=== PATIENT | male | born 1950 | race Caucasian/White ===

== ENCOUNTER 2021-12-11 11:20 | Inpatient (IN) | payer MEDICARE, MEDICAID ==
[~2021-12-11] VITALS: Ht 182.9 cm; Wt 102.0 kg
[2021-12-11 12:24] LABS: HEMOGLOBIN 12.9 gm/dl (14.0-17.5); RED BLOOD COUNT 4.02 M/UL (4.20-5.50); WHITE BLOOD COUNT 8.4 K/UL (4.5-11.0)
[2021-12-11 13:04] LABS: BUN/CREATININE RATIO 12 (0-10)
[2021-12-11] MEDS ORDERED: BENAZEPRIL HCL40 MG PO (16:14)
[2021-12-11] MEDS ORDERED: FINASTERIDE5 MG PO (16:15)
[2021-12-11] MEDS ORDERED: ALLOPURINOL100 MG PO (16:15)
[2021-12-11] MEDS ORDERED: FLOMAX 0.4 MG0.4 MG PO (16:15)
[2021-12-11] MEDS ORDERED: GLIPIZIDE5 MG PO (16:15)
[2021-12-11] MEDS ORDERED: METHYLPREDNISOLO4 M1 PO (16:16)
[2021-12-11] MEDS ORDERED: SIMVASTATIN80 MG PO (16:16)
[2021-12-11] MEDS ORDERED: NIFEDIPINE ER30 MG PO (16:16)
[2021-12-11] MEDS ORDERED: AZITHROMYCIN250 MG PO (16:17)
[2021-12-11] MEDS ORDERED: PROAIR HFA8.5 GM INH (16:18)
[2021-12-12 03:21] LABS: HEMOGLOBIN 11.9 gm/dl (14.0-17.5); RED BLOOD COUNT 3.76 M/UL (4.20-5.50)
[2021-12-12 03:34] LABS: WHITE BLOOD COUNT 3.8 K/UL (4.5-11.0)
[2021-12-12 03:54] LABS: BUN/CREATININE RATIO 17 (0-10)
--- NOTE | 2021-12-12 19:31 | NUR ---
12/12/21 1130 PATIENT WAS NOTED TO HAVE A O2 SATURATION OF 84% ON TELEMETRY. I ENTERED THE ROOM TO ASSESS THE PATIENT AND NOTED THAT THE PATIENT WAS NOT RESPONDING TO QUESTIONS. I SHOOK THE PATIENT AND HAD DIFFICULTY GETTING THE PATIENT TO RESPOND. ONCE PATIENT WAS ALERT I NOTED HIS WORDS WAS GARBLED, I ATTEMPTED TO GET THE PATIENT TO LOOK TOWARDS THE DOOR OF THE ROOM AND PATIENT WAS UNABLE TO LOOK TO THE LEFT OR TURN HIS HEAD TO THE LEFT. I ASSESSED HAND REAL ESTATE SALESPERSON AND PEDAL PUSHES TO NOTE THE PATIENT WAS UNABLE TO RETAIL SUPPORT MANAGER WITH THE LEFT HAND, OR LIFT THE ARM AT ALL. CONFIGURATION RELEASE MANAGER WAS CALLED AT 1140, DR. MILLER AND MONIQUE REMY CAME TO BEDSIDE. PATIENT WAS ON 100% AIRVO AND UNABLE TO MAITAIN HIS O2 SATURATION. DR. AMAYA ORDERED THE PATIENT TO BE PLACED ON BIPAP AND TO BE TRANSFERED TO ICU.
== END 2021-12-12 15:59 | disposition short-term general hospital (02) | DRG 208 ==
LOC: ER1 11:20 → CDU 16:17 → PROG CARE 18:44 → CCU 12-12 12:50
PROVIDERS: Physician Assistant Medical; ADMIT Internal Medicine
PROC: 8E0ZXY6 Isolation (ICD-10-PCS; principal; 2021-12-11)
PROC: XW033E5 Introduction of Remdesivir Anti-infective into Peripheral Vein, Percutaneous Approach, New Technology Group 5 (ICD-10-PCS; 2021-12-11)
PROC: XW033H5 Introduction of Tocilizumab into Peripheral Vein, Percutaneous Approach, New Technology Group 5 (ICD-10-PCS; 2021-12-11)
PROC: 3E0333Z Introduction of Anti-inflammatory into Peripheral Vein, Percutaneous Approach (ICD-10-PCS; 2021-12-11)
PROC: 5A1935Z Respiratory Ventilation, Less than 24 Consecutive Hours (ICD-10-PCS; 2021-12-12)
PROC: B24BZZZ Ultrasonography of Heart with Aorta (ICD-10-PCS; 2021-12-12)
PROC: 0BH17EZ Insertion of Endotracheal Airway into Trachea, Via Natural or Artificial Opening (ICD-10-PCS; 2021-12-12)
PROC: 3E03317 Introduction of Other Thrombolytic into Peripheral Vein, Percutaneous Approach (ICD-10-PCS; 2021-12-12)
PROC: 5A0935A Assistance with Respiratory Ventilation, Less than 24 Consecutive Hours, High Flow/Velocity Cannula (ICD-10-PCS; 2021-12-12)
PROC: 5A09357 Assistance with Respiratory Ventilation, Less than 24 Consecutive Hours, Continuous Positive Airway Pressure (ICD-10-PCS; 2021-12-12)
DX: U07.1 COVID-19 (principal); J96.01 Acute respiratory failure with hypoxia; J12.82 Pneumonia due to coronavirus disease 2019; J15.9 Unspecified bacterial pneumonia; I63.031 Cerebral infarction due to thrombosis of right carotid artery; I63.311 Cerebral infarction due to thrombosis of right middle cerebral artery; E87.1 Hypo-osmolality and hyponatremia; G81.94 Hemiplegia, unspecified affecting left nondominant side; M10.9 Gout, unspecified; I07.1 Rheumatic tricuspid insufficiency; E11.9 Type 2 diabetes mellitus without complications; N40.0 Benign prostatic hyperplasia without lower urinary tract symptoms; I10 Essential (primary) hypertension; E78.5 Hyperlipidemia, unspecified; R79.89 Other specified abnormal findings of blood chemistry; Z88.0 Allergy status to penicillin; Z83.3 Family history of diabetes mellitus; Z79.4 Long term (current) use of insulin; Z85.22 Personal history of malignant neoplasm of nasal cavities, middle ear, and accessory sinuses; Z23 Encounter for immunization
CPT/HCPCS: ECHO; 31500; 36415; 36600; 70496; 70498; 71045; 80053; 82803; 82962; 83605; 85025; 85027; 85379; 85610; 85730; 86140; 87040; 93005; 93306; 93970; 94002; 94640; 94660; 94664; 94760; 96374; 99285; J0248; J0330; J1100; J2704; J2997; J3010; J3370; J7030; J7070; Q0249; Q9967; U0002